=== PATIENT | male | born 1955 | race Caucasian/White ===

== ENCOUNTER 2022-03-25 05:57 | Day surgery (SDC) | payer MEDICARE, OTHER ==
[~2022-03-25 05:57] MED LIST: Lactated Ringers 1,000 ML IV SCH; Lidocaine 1%/Sod Bicarbonate in NS 8.4% 1 ML Syringe IDERM PRN; Sodium Chloride 0.9% 10 ML Syringe FLUSH PRN; Sodium Chloride 0.9% 10 ML Syringe FLUSH SCH
[2022-03-25] MEDS ORDERED: oxyCODONE ER 10 MG TAB.ER PO SCH (06:00)
[2022-03-25] MEDS ORDERED: Morphine 8 MG, EPINEPHrine 0.3 MG, Cefuroxime 750 MG, Ketorolac 30 MG, Sodium Chloride ... PRN ×5 (06:00)
[2022-03-25] MEDS ORDERED: Acetaminophen 325 MG Tab PO SCH (06:00)
[2022-03-25] MEDS ORDERED: Pregabalin 25 MG Cap PO SCH (06:00)
[2022-03-25] MEDS ORDERED: Vancomycin 1 GM SDV ONE (06:08)
[2022-03-25] MEDS ORDERED: Propofol 200 MG/20 ML SDV ONE ×4 (06:27→12:50)
[2022-03-25] MEDS ORDERED: Lidocaine 1% 4 ML ONE (06:28)
[2022-03-25] MEDS ORDERED: Midazolam 1 MG/ML 2 ML SDV ONE (06:29)
[2022-03-25] MEDS ORDERED: fentaNYL 100 MCG/2 ML SDV ONE (06:29)
[2022-03-25] MEDS ORDERED: ceFAZolin 2 GM Vial ONE (06:30)
[2022-03-25] MEDS ORDERED: ePHEDrine 50 MG/ML SDV ONE (07:16)
[2022-03-25] MEDS ORDERED: Lactated Ringers 0 ML ONE (07:37)
[2022-03-25] MEDS ORDERED: Phenylephrine HCl In 0.9% NaCl 1 MG/10 ML Vial ONE ×2 (07:54→12:59)
[2022-03-25] MEDS ORDERED: Ondansetron 4 MG/2 ML SDV IVPUSH PRN (07:58)
[2022-03-25] MEDS ORDERED: diphenhydrAMINE 50 MG/ML SDV IVPUSH PRN (07:58)
[2022-03-25] MEDS ORDERED: fentaNYL 100 MCG/2 ML SDV IVPUSH PRN (07:58)
[2022-03-25] MEDS ORDERED: Ondansetron 4 MG/2 ML SDV ONE ×2 (08:32→12:05)
[2022-03-25] MEDS ORDERED: Ketorolac 30 MG/ML SDV ONE ×2 (08:32→12:05)
[2022-03-25] MEDS ORDERED: Lactated Ringers 1,000 ML ONE (12:45)
== END 2022-03-25 12:30 | disposition home or self-care (01) ==
LOC: JD.SDS 05:57
PROVIDERS: ATTEND Orthopaedic Surgery
DX: M16.11 Unilateral primary osteoarthritis, right hip (principal); I10 Essential (primary) hypertension; N40.0 Benign prostatic hyperplasia without lower urinary tract symptoms; E78.5 Hyperlipidemia, unspecified; E03.9 Hypothyroidism, unspecified; E66.9 Obesity, unspecified; E55.9 Vitamin D deficiency, unspecified; Z98.890 Other specified postprocedural states; Z79.899 Other long term (current) drug therapy; Z79.82 Long term (current) use of aspirin; Z68.31 Body mass index [BMI] 31.0-31.9, adult
CPT/HCPCS: 01214; 36415; 73501-26-RT; 73501-RT; 86850; 86900; 86901; 97110-GP; 97116-GP; 97161-GP; C1713; C1776; J0171; J0690; J0697; J1885; J2250; J2270; J2405; J2704; J3010; J3370; J7120

== ENCOUNTER 2022-10-21 10:05 | Day surgery (SDC) | payer MEDICARE, OTHER ==
[~2022-10-21 10:05] MED LIST changes: +Acetaminophen 325 MG Tab PO SCH; -Lidocaine 1%/Sod Bicarbonate in NS 8.4% 1 ML Syringe IDERM PRN; +Morphine 8 MG, EPINEPHrine 0.3 MG, Cefuroxime 750 MG, Ketorolac 30 MG, Sodium Chloride ... PRN; +Pregabalin 25 MG Cap PO SCH; -Sodium Chloride 0.9% 10 ML Syringe FLUSH PRN; -Sodium Chloride 0.9% 10 ML Syringe FLUSH SCH; +oxyCODONE ER 10 MG TAB.ER PO SCH
[2022-10-21] MEDS ORDERED: fentaNYL 100 MCG/2 ML SDV IVPUSH PRN ×2 (10:44→14:39)
[2022-10-21] MEDS ORDERED: Ondansetron 4 MG/2 ML SDV IVPUSH PRN ×2 (10:44→14:39)
[2022-10-21] MEDS ORDERED: HYDROmorphone 0.5 MG/0.5 ML Syringe IVPUSH PRN ×2 (10:44→14:39)
[2022-10-21] MEDS ORDERED: Midazolam 1 MG/ML 2 ML SDV ONE (11:39)
[2022-10-21] MEDS ORDERED: fentaNYL 100 MCG/2 ML SDV ONE (11:39)
[2022-10-21] MEDS ORDERED: Propofol 200 MG/20 ML SDV ONE ×2 (11:40→13:49)
[2022-10-21] MEDS ORDERED: Vancomycin 1 GM SDV ONE (11:58)
[2022-10-21] MEDS ORDERED: Tranexamic Acid 1,000 MG/10 ML Vial ONE (11:58)
[2022-10-21] MEDS ORDERED: ceFAZolin 2 GM Vial ONE (13:22)
[2022-10-21] MEDS ORDERED: Lactated Ringers 1,000 ML ONE ×2 (13:23→13:40)
[2022-10-21] MEDS ORDERED: oxyCODONE 5 MG Tab PO ONE (17:50)
== END 2022-10-21 17:57 | disposition home or self-care (01) ==
LOC: JD.SDS 10:05
PROVIDERS: ATTEND Orthopaedic Surgery
DX: M16.12 Unilateral primary osteoarthritis, left hip (principal); I10 Essential (primary) hypertension; E03.9 Hypothyroidism, unspecified; E66.9 Obesity, unspecified; E55.9 Vitamin D deficiency, unspecified; E78.5 Hyperlipidemia, unspecified; N40.0 Benign prostatic hyperplasia without lower urinary tract symptoms; Z87.891 Personal history of nicotine dependence; Z68.34 Body mass index [BMI] 34.0-34.9, adult; Z79.82 Long term (current) use of aspirin; Z79.899 Other long term (current) drug therapy; Z96.641 Presence of right artificial hip joint; Z98.890 Other specified postprocedural states
CPT/HCPCS: 0055T; 27130; 36415; 73501; 86850; 86900; 86901; 97116; 97161; A9270; C1713; C1776; J0171; J0690; J0697; J1885; J2250; J2270; J2704; J3010; J3370; J7120; 01214; J3490